=== PATIENT | male | born 1995 | race Caucasian/White ===

== ENCOUNTER 2022-01-18 10:10 | Emergency (ER) | payer MEDICAID, OTHER ==
[~2022-01-18] VITALS: Ht 175.3 cm; Wt 88.9 kg
[2022-01-18 10:10] VITALS: BP 150/99
--- NOTE | 2022-01-18 10:11 | NUR ---
UNRULY to chair C, ambulatory.
--- NOTE | 2022-01-18 10:15 | NUR ---
PROVIDED PT WITH WOUND CARE USING GAUZE AND WATER TO CLEAN RIGHT ELBOW, FOREARM AND HAND.
--- NOTE | 2022-01-18 10:17 | NUR ---
EMT at bedside for wound irrigation
--- NOTE | 2022-01-18 11:19 | NUR ---
Patient ambulated to bed 11 steady/even gait
[2022-01-18] MEDS ORDERED: LIDOCAINE MPF 1% 10 MG/ML VIAL INJ ONE (11:20)
--- NOTE | 2022-01-18 11:24 | NUR ---
26 Y/O MALE BIBA C/O MULTIPLE LACERATIONS ON THE RIGHT ELBOW, MEASURING 1CM ACROSS, NO ACTIVE BLEEDING, NO REDNESS, DENIES ANY PAIN. PT STATED THAT THEY JUMPED A FENCE AND THEY SCRAPPED THEIR ELBOW. NO REDNESS, NO ACTIVE BLEEDING NOTED AT THE SITE. DOES NOT RECALL LAST TDAP VACCINE. PMH; DENIES ALLERGY; CODEINE
--- NOTE | 2022-01-18 12:00 | NUR ---
Patient given written and verbal discharge instructions ABOUT LACERATION CARE and verbalizes understanding. Patient is awake, alert and oriented. Ambulatory with steady gait. Refuses offer of snf placement. Given list of available shelters in surrounding areas, [facility], [facility].
== END 2022-01-18 12:00 | disposition home or self-care (01) ==
LOC: MED 10:10
DX: S41.111A Laceration without foreign body of right upper arm, initial encounter (principal); I10 Essential (primary) hypertension; Z88.2 Allergy status to sulfonamides; Z88.5 Allergy status to narcotic agent; Z88.1 Allergy status to other antibiotic agents; W45.8XXA Other foreign body or object entering through skin, initial encounter; Y93.39 Activity, other involving climbing, rappelling and jumping off; Y92.89 Other specified places as the place of occurrence of the external cause; Y99.8 Other external cause status
CPT/HCPCS: 12001; 90471; 90715; 99283; J2001

== ENCOUNTER 2022-04-30 22:43 | Emergency (ER) | payer MEDICAID ==
[~2022-04-30] VITALS: Ht 175.3 cm; Wt 79.4 kg
--- NOTE | 2022-04-30 22:45 | NUR ---
Dr. Boone examining patient.
[2022-04-30 22:47] VITALS: BP 136/86
[2022-04-30 22:54] VITALS: BP 136/86
--- NOTE | 2022-04-30 22:54 | NUR ---
Blood for labwork drawn from right arm per security rep. Patient tolerated well.
[2022-04-30] MEDS ORDERED: ceFAZolin 1,000 MG VIAL ONE (22:58)
--- NOTE | 2022-04-30 23:28 | NUR ---
Provided [facility] as request.
[2022-05-01] MEDS ORDERED: CEPH-588 PO (00:18)
== END 2022-05-01 00:20 | disposition home or self-care (01) ==
LOC: MED 22:43
DX: L03.211 Cellulitis of face (principal); F15.90 Other stimulant use, unspecified, uncomplicated; I10 Essential (primary) hypertension; Z88.2 Allergy status to sulfonamides; Z88.5 Allergy status to narcotic agent; Z88.1 Allergy status to other antibiotic agents
CPT/HCPCS: 36415; 87040; 96365; 99284; J0690

== ENCOUNTER 2022-05-22 17:28 | Emergency (ER) | payer MEDICAID ==
[~2022-05-22] VITALS: Ht 175.3 cm; Wt 84.4 kg
[~2022-05-22 17:28] MED LIST: CEPH-588 PO
[2022-05-22 17:46] VITALS: BP_SYST 101; BP_SYST 88; BP_DIAS 51; BP_DIAS 72
[2022-05-22] MEDS ORDERED: IBUPROFEN 600 MG TAB PO ONE (18:00)
--- NOTE | 2022-05-22 18:00 | NUR ---
THELMA HERNANDEZ FOR PREBOOK. C/O URINARY RETENTION , LAST PEE YESTERDAY AND C/O LEFT LEG PAIN.
[2022-05-22] MEDS ORDERED: ACETAMINOPHEN EXTRA STRENGTH 500 MG TAB PO ONE (18:40)
[2022-05-22 19:15] VITALS: BP 101/51
--- NOTE | 2022-05-22 19:16 | NUR ---
Patient discharged with v/s stable. Written and verbal after care instructions given and explained. Patient verbalized understanding. Police with in custody. All questions addressed prior to discharge. Advised to follow up with PMD.
== END 2022-05-22 19:16 | disposition home or self-care (01) ==
LOC: MED 17:28
DX: S86.912A Strain of unspecified muscle(s) and tendon(s) at lower leg level, left leg, initial encounter (principal); S86.911A Strain of unspecified muscle(s) and tendon(s) at lower leg level, right leg, initial encounter; R33.9 Retention of urine, unspecified; I10 Essential (primary) hypertension; Z79.2 Long term (current) use of antibiotics; Z88.2 Allergy status to sulfonamides; Z88.5 Allergy status to narcotic agent; Z88.1 Allergy status to other antibiotic agents; X58.XXXA Exposure to other specified factors, initial encounter; Y92.89 Other specified places as the place of occurrence of the external cause; Y93.89 Activity, other specified; Y99.8 Other external cause status
CPT/HCPCS: 99284